=== PATIENT | female | born 1995 | race Caucasian/White ===

== ENCOUNTER 2019-02-01 12:31 | Emergency (ER) | payer OTHER ==
[~2019-02-01] VITALS: Ht 157.5 cm; Wt 45.4 kg
== END 2019-02-01 14:44 | disposition home or self-care (01) ==
LOC: ED 12:31
DX: G43.A0 Cyclical vomiting, in migraine, not intractable (principal)
CPT/HCPCS: 80053; 81001; 83690; 84703; 85025; 96361; 96374; 96376; 99284-25; J2405; J7030

== ENCOUNTER 2019-06-30 14:04 | Emergency (ER) | payer OTHER ==
[~2019-06-30] VITALS: Ht 157.5 cm; Wt 45.4 kg
[2019-06-30] MEDS ORDERED: ONDANSETRON ODT8 MG PO (16:20)
== END 2019-06-30 16:28 | disposition home or self-care (01) ==
LOC: ED 14:04
DX: K29.00 Acute gastritis without bleeding (principal)
CPT/HCPCS: 80053; 81001; 83690; 84703; 85025; 96361; 96374; 99284-25; J2405; J7030